=== PATIENT | female | born 1975 | race Hispanic/Latino ===

== ENCOUNTER 2017-09-08 21:15 | Inpatient (IN) | payer SELFPAY ==
[~2017-09-08] VITALS: Ht 152.4 cm; Wt 68.9 kg
[2017-09-08 21:30] VITALS: BP 131/79
[2017-09-08 21:57] LABS: APPEARANCE,URINE Clear (CLEAR); BILIRUBIN,URINE Negative (NEGATIVE); COLOR,URINE Yellow (YELLOW); GLUCOSE, URINE (UA) Negative (NEGATIVE); KETONES,URINE Negative (NEGATIVE); LEUKOCYTE ESTERASE ,URINE Small (NEGATIVE); NITRATE,URINE Negative (NEGATIVE); OCCULT BLOOD,URINE Negative (NEGATIVE); PROTEIN,URINE Negative (NEGATIVE)
[2017-09-08 22:03] LABS: HCG,QUAL RESULT NEGATIVE (NEGATIVE)
[2017-09-08 22:05] LABS: BACTERIA,URINE Rare /HPF (None Seen); RBC,URINE 0-1 /HPF (0-1); SQUAMOUS EPITHELIAL CELL,UR Rare /LPF (0-2)
[2017-09-08 22:32] LABS: BASOPHILS % (AUTO) 0.6 % (0.0-5.0); CREATININE 0.8 mg/dL (0.5-1.5); EOSINOPHILS % (AUTO) 1.7 % (0.0-8.0); INR 1.02 (0.85-1.15); LYMPHOCYTES % (AUTO) 16.1 % (21.0-51.0); MEAN CORPUSCULAR HEMOGLOBIN 17.8 pg (27.0-33.0); MEAN CORPUSCULAR HGB CONC 30.3 g/dL (32.0-36.0); MEAN CORPUSCULAR VOLUME 58.7 fL (79-99); MONOCYTES % (AUTO) 12.8 % (3.0-13.0); NEUTROPHILS % (AUTO) 68.8 % (40.0-77.0); PARTIAL THROMBOPLASTIN TIME 26.1 SEC (26.3-35.5); PLATELET COUNT (AUTO) 307 K/uL (130-400); POTASSIUM 3.8 mmol/L (3.5-5.1); PROTHROMBIN TIME 10.7 SEC (9.6-11.6); RED CELL DISTRIBUTION WIDTH 20.5 % (11.0-15.5); WHITE BLOOD COUNT (AUTO) 6.8 K/uL (4.8-10.8)
[2017-09-08 22:37] LABS: BILIRUBIN,TOTAL 0.3 mg/dL (0.2-1.0); TOTAL PROTEIN, SERUM 7.9 g/dL (6.0-8.3)
[2017-09-08] MEDS ORDERED: DiphenhydrAMINE HCL 50 MG/ML VIAL ONE (23:33)
[2017-09-08] MEDS ORDERED: METOCLOPRAMIDE 10 MG/2 ML VIAL ONE (23:33)
[2017-09-09] VITALS (19 sets, daily range): BP systolic 114–141; BP diastolic 52–85
[2017-09-09] MEDS ORDERED: FENTANYL CITRATE PF 50 MCG/1 ML 5ML AMP IV ONE (16:07)
[2017-09-09] MEDS ORDERED: MIDAZOLAM HCL 1 MG/ML 2ML VIAL ONE (16:07)
[2017-09-09] MEDS ORDERED: PROPOFOL 10 MG/ML 20ML VIAL IV ONE (16:07)
[2017-09-09] MEDS ORDERED: LACTATED RINGERS 1000ML 1,000 ML IV ONE (16:09)
[2017-09-09] MEDS ORDERED: CEFAZOLIN SODIUM 1 GM VIAL ONE (16:09)
[2017-09-09] MEDS ORDERED: THROMBIN-JMI 5000 UNIT/VIAL TP ONE (16:16)
[2017-09-09] MEDS ORDERED: LIDOCAINE HCL 1% 20 ML VIAL ONE (16:17)
[2017-09-09] MEDS ORDERED: BACITRACIN 50,000 UNIT VIAL ONE ×2 (16:17→17:10)
[2017-09-09] MEDS ORDERED: EPINEPHRINE 1 MG/ML AMPULE ONE (16:37)
[2017-09-09] MEDS ORDERED: ROCURONIUM BROMIDE 10MG/1ML 5ML VL ONE (17:11)
[2017-09-09] MEDS ORDERED: DEXAMETHASONE SOD PHOSPHATE 10MG/ML 1ML VIAL ONE (17:11)
[2017-09-09] MEDS ORDERED: ONDANSETRON HCL 4 MG/2 ML VIAL ONE (17:11)
[2017-09-09] MEDS ORDERED: LIDOCAINE PF 2% 5ML ABBOJECT ONE (17:11)
[2017-09-09] MEDS ORDERED: MEPERIDINE-PF 50 MG/ML SYG IM PRN (18:45)
[2017-09-10] VITALS (9 sets, daily range): BP systolic 100–117; BP diastolic 55–66
[2017-09-10 04:26] LABS: HEMATOCRIT 24.4 % (36-48); MEAN CORPUSCULAR HEMOGLOBIN 18.3 pg (27.0-33.0); MEAN CORPUSCULAR HGB CONC 31.3 g/dL (32.0-36.0); MEAN CORPUSCULAR VOLUME 58.6 fL (79-99); NUCLEATED RED BLOOD CELLS 0.1 % (0.0-0.19); PLATELET COUNT (AUTO) 285 K/uL (130-400); RED BLOOD CELL COUNT(AUTO) 4.17 MIL/uL (4.00-5.50); RED CELL DISTRIBUTION WIDTH 19.8 % (11.0-15.5); WHITE BLOOD COUNT (AUTO) 8.8 K/uL (4.8-10.8)
[2017-09-10 04:35] LABS: CREATININE 0.7 mg/dL (0.5-1.5); POTASSIUM 3.9 mmol/L (3.5-5.1)
[2017-09-10 05:19] LABS: BAND NEUTROPHILS % (MANUAL) 2 % (0-2); LYMPHOCYTES % (MANUAL) 8 % (22-44); MAN.DIFF COMMENT-IMPRESSION MANUAL DIFFERENTIAL; SEGMENTED NEUTROPHILS % 90 % (40-70)
[2017-09-10 05:20] LABS: PLATELET MORPHOLOGY COMMENT ADEQUATE
[2017-09-10] MEDS: LACTATED RINGERS 1000ML 1,000 ML IV SCH ×2 (09:44→23:08)
[2017-09-10] MEDS ORDERED: TRAMADOL HCL 50 MG TABLET PO PRN (19:30)
[2017-09-11 04:06] VITALS: BP 111/57
[2017-09-11 08:06] VITALS: BP 107/66
[2017-09-11 11:14] VITALS: BP 93/61
== END 2017-09-11 15:41 | disposition home or self-care (01) | DRG 27 ==
LOC: EDH 21:15 → OBSVTOIN 21:16 → EDHIP 21:16 → 2AH 09-09 10:28
PROVIDERS: ADMIT Family Medicine; ATTEND Family Medicine
PROC: 00940ZZ Drainage of Intracranial Subdural Space, Open Approach (ICD-10-PCS; principal; 2017-09-09 16:00)
PROC: 00N00ZZ Release Brain, Open Approach (ICD-10-PCS; 2017-09-09 16:00)
DX: S06.5X9A Traumatic subdural hemorrhage with loss of consciousness of unspecified duration, initial encounter (principal)
CPT/HCPCS: 36415; 70450; 70544; 70547; 70551; 71045; 80048; 80053; 81001; 81025; 84484; 85025; 85610; 85730; 93005; 93306; J0171; J0690; J1100; J1200; J2001; J2175; J2250; J2405; J2704; J2765; J3010; J3490; J7030; J7120

== ENCOUNTER 2017-10-25 08:15 | Emergency (ER) | payer SELFPAY ==
[2017-10-25 08:43] LABS: APPEARANCE,URINE Clear (CLEAR); BILIRUBIN,URINE Negative (NEGATIVE); COLOR,URINE Yellow (YELLOW); GLUCOSE, URINE (UA) Negative (NEGATIVE); KETONES,URINE Negative (NEGATIVE); LEUKOCYTE ESTERASE ,URINE Negative (NEGATIVE); NITRATE,URINE Negative (NEGATIVE); OCCULT BLOOD,URINE Negative (NEGATIVE); PH,URINE 7.5 (5.0-8.0); PROTEIN,URINE Negative (NEGATIVE); UROBILINOGEN,URINE 0.2 mg/dL (0.2-1.0)
[2017-10-25 08:46] LABS: HCG,QUAL RESULT NEGATIVE (NEGATIVE)
[2017-10-25] MEDS ORDERED: ACETAMINOPHEN 325 MG TAB ONE (09:13)
== END 2017-10-25 10:04 | disposition home or self-care (01) ==
LOC: EDH 08:15
DX: M54.32 Sciatica, left side (principal); Z98.890 Other specified postprocedural states
CPT/HCPCS: 72100; 81003; 81025

== ENCOUNTER 2021-02-25 16:10 | Inpatient (IN) | payer OTHER ==
[~2021-02-25] VITALS: Ht 160 cm; Wt 64.9 kg
[2021-02-25] VITALS (9 sets, daily range): BP systolic 103–129; BP diastolic 44–69
[2021-02-25 17:24] LABS: BASOPHILS % (AUTO) 0.8 % (0.0-5.0); EOSINOPHILS % (AUTO) 4.1 % (0.0-8.0); HEMATOCRIT 22.9 % (36-48); LYMPHOCYTES % (AUTO) 19.9 % (21.0-51.0); MEAN CORPUSCULAR HEMOGLOBIN 15.6 pg (27.0-33.0); MEAN CORPUSCULAR HGB CONC 25.8 g/dL (32.0-36.0); MEAN CORPUSCULAR VOLUME 60.6 fL (79-99); MONOCYTES % (AUTO) 13.3 % (3.0-13.0); NEUTROPHILS % (AUTO) 61.6 % (40.0-77.0); PLATELET COUNT (AUTO) 273 K/uL (130-400); RED BLOOD CELL COUNT(AUTO) 3.78 MIL/uL (4.00-5.50); RED CELL DISTRIBUTION WIDTH 20.8 % (11.0-15.5); WHITE BLOOD COUNT (AUTO) 3.9 K/uL (4.8-10.8)
[2021-02-25 17:28] LABS: APPEARANCE,URINE Clear (CLEAR); BILIRUBIN,URINE Negative (NEGATIVE); COLOR,URINE Yellow (YELLOW); GLUCOSE, URINE (UA) Negative (NEGATIVE); KETONES,URINE Negative (NEGATIVE); LEUKOCYTE ESTERASE ,URINE Negative (NEGATIVE); NITRATE,URINE Negative (NEGATIVE); OCCULT BLOOD,URINE Negative (NEGATIVE); PH,URINE 5.5 (5.0-8.0); PROTEIN,URINE Negative (NEGATIVE); UROBILINOGEN,URINE 0.2 mg/dL (0.2-1.0)
[2021-02-25 17:37] LABS: CREATININE 0.5 mg/dL (0.5-1.5); POTASSIUM 3.7 mmol/L (3.5-5.1)
[2021-02-25 17:42] LABS: ALBUMIN 3.5 g/dL (3.5-5.0); BILIRUBIN,TOTAL 0.2 mg/dL (0.2-1.0); TOTAL PROTEIN, SERUM 7.3 g/dL (6.0-8.3)
[2021-02-25 17:46] LABS: INR 0.95 (0.85-1.15); PROTHROMBIN TIME 10.4 SEC (9.6-11.6)
[2021-02-25 17:47] LABS: PARTIAL THROMBOPLASTIN TIME 23.4 SEC (26.3-35.5)
[2021-02-25 22:19] LABS: % IRON SATURATION 2.7 % (22-44)
[2021-02-25] MEDS ORDERED: DIPHENHYDRAMINE HCL 25 MG CAPSULE PO PRN (22:30)
[2021-02-25] MEDS ORDERED: ACETAMINOPHEN 325 MG TAB PO PRN ×2 (22:30)
[2021-02-25] MEDS ORDERED: ONDANSETRON 4MG INJ IV PRN (22:30)
[2021-02-25] MEDS ORDERED: NITROGLYCERIN 0.4 MG SL TAB SL PRN (22:30)
[2021-02-25] MEDS: 0.9%NACL 1000ML 1,000 ML IV SCH (22:34)
[2021-02-25 22:38] LABS: HEMOGLOBIN A1C 5.7 % (4.0-6.0)
[2021-02-26] VITALS (9 sets, daily range): BP systolic 95–128; BP diastolic 51–64
[2021-02-26 07:35] LABS: BASOPHILS % (AUTO) 0.4 % (0.0-5.0); EOSINOPHILS % (AUTO) 4.2 % (0.0-8.0); HEMATOCRIT 28.6 % (36-48); LYMPHOCYTES % (AUTO) 31.1 % (21.0-51.0); MEAN CORPUSCULAR HEMOGLOBIN 18.9 pg (27.0-33.0); MEAN CORPUSCULAR HGB CONC 28.3 g/dL (32.0-36.0); MEAN CORPUSCULAR VOLUME 66.7 fL (79-99); MONOCYTES % (AUTO) 14.9 % (3.0-13.0); NEUTROPHILS % (AUTO) 49.2 % (40.0-77.0); PLATELET COUNT (AUTO) 208 K/uL (130-400); RED BLOOD CELL COUNT(AUTO) 4.29 MIL/uL (4.00-5.50); RED CELL DISTRIBUTION WIDTH 26.4 % (11.0-15.5)
[2021-02-26 07:53] LABS: ALBUMIN 3.1 g/dL (3.5-5.0); BILIRUBIN,TOTAL 0.4 mg/dL (0.2-1.0); CREATININE 0.6 mg/dL (0.5-1.5); MAGNESIUM 1.9 mg/dL (1.80-2.40); POTASSIUM 4.2 mmol/L (3.5-5.1); TOTAL PROTEIN, SERUM 6.5 g/dL (6.0-8.3)
[2021-02-26] MEDS: 0.9%NACL 1000ML 1,000 ML IV SCH (08:30)
[2021-02-26] MEDS: FAMOTIDINE 20MG TAB PO SCH ×2 (08:44→19:48)
[2021-02-26] MEDS: MEDROXYPROGESTERONE ACET 5 MG TAB PO SCH ×2 (08:44→19:48)
[2021-02-26] MEDS ORDERED: COMPOUND IV MISC 1 EACH IVSOLN MISC PRN (13:00)
[2021-02-26] MEDS: IRON SUCROSE COMPLEX 100 MG in 0.9%NACL 50ML 50 ML IV SCH (19:49)
[2021-02-27 04:30] VITALS: BP 97/54
[2021-02-27 06:14] LABS: HEMATOCRIT 28.1 % (36-48)
[2021-02-27 07:00] VITALS: BP 101/61
[2021-02-27] MEDS: IRON SUCROSE COMPLEX 100 MG in 0.9%NACL 50ML 50 ML IV SCH (08:53)
[2021-02-27] MEDS: MEDROXYPROGESTERONE ACET 5 MG TAB PO SCH (08:53)
[2021-02-27] MEDS: FAMOTIDINE 20MG TAB PO SCH (08:53)
[2021-02-27] MEDS ORDERED: FERS325 PO (10:22)
[2021-02-27 11:00] VITALS: BP 108/50
== END 2021-02-27 13:15 | disposition home or self-care (01) | DRG 760 ==
LOC: EDH 16:10 → EDHIP 16:11 → 3AH 22:07
PROVIDERS: ADMIT Internal Medicine; ATTEND Internal Medicine
PROC: 30233N1 Transfusion of Nonautologous Red Blood Cells into Peripheral Vein, Percutaneous Approach (ICD-10-PCS; principal; 2021-02-25)
DX: N92.0 Excessive and frequent menstruation with regular cycle (principal); D62 Acute posthemorrhagic anemia; E11.9 Type 2 diabetes mellitus without complications; Z87.891 Personal history of nicotine dependence
CPT/HCPCS: 36415; 36430; 76856; 80053; 81003; 82270; 82728; 83036; 83540; 83550; 83735; 85014; 85018; 85025; 85610; 85730; 86850; 86900; 86901; 86923; 99291; G0378; J1756; J7030; P9016